=== PATIENT | male | born 1955 | race Asian ===

== ENCOUNTER 2022-12-13 14:37 | Outpatient (CLI) | payer MEDICARE, OTHER ==
--- NOTE | 2022-12-13 15:14 | XRAY Report ---
PROCEDURE: Knee 4 View LT INDICATIONS: LEFT KNEE PAIN TECHNIQUE: 3 views of the left knee(s) were acquired. COMPARISON: None. FINDINGS: Bones: No fractures or dislocations. No suspicious bony lesions. Mild medial compartment joint spac e narrowing Soft tissues: No mild joint effusion. Mattress chronic vascular calcification. IMPRESSION: Mild medial compartment joint space narrowing associated with mild joint effusion Reviewed by: Lexa Allen MD on 12/13/2022 2:13 PM AKST Approved by: Lexa Allen MD on 12/13/2022 2:13 PM AKST Station ID: [id number]
== END 2022-12-13 14:42 | disposition home or self-care (01) ==
LOC: DI.WOS 14:37
PROVIDERS: ATTEND Physician Assistant Surgical
DX: M17.12 Unilateral primary osteoarthritis, left knee (principal); M25.462 Effusion, left knee